=== PATIENT | male | born 1975 | race Two or more races ===

== ENCOUNTER 2018-08-19 18:41 | Emergency (ER) | payer MEDICAID ==
[~2018-08-19] VITALS: Ht 167.6 cm; Wt 86.2 kg
[2018-08-19] MEDS ORDERED: SODIUM CHLORIDE 0.9% 1,000 ML IV ONE ×2 (19:15→20:30)
[2018-08-19] MEDS ORDERED: ONDANSETRON HCL 4 MG/2 ML VIAL IV ONE (19:15)
[2018-08-19] MEDS ORDERED: MORPHINE SULFATE 4 MG/ML SYR/VIAL IV ONE (19:15)
[2018-08-19 19:40] LABS: Basophils # (auto) 0 uL; Eosinophils # (auto) 0 uL; Eosinophils % (auto) 0.2 % (0.0-7.0); Lymphocytes # (auto) 1.4 uL; Mean Corpuscular Hemoglobin 34.1 pg (28.0-32.0)
[2018-08-19 19:44] LABS: Basophils % (auto) 0.6 % (0.0-2.0); Hemoglobin 16.6 g/dL (13.5-17.5); Lymphocytes % (auto) 19.4 % (10.0-50.0); Mean Corpuscular Hgb Conc. 34.7 g/dL (32.0-36.0); Mean Corpuscular Volume 98.1 fL (80.0-100.0); Monocytes # (auto) 0.8 uL; Monocytes % (auto) 10.3 % (0.0-12.0); Neutrophils # (auto) 5.1 uL; Neutrophils % (auto) 69.5 % (37.0-80.0); Nucleated Red Blood Cells % 0.2 %; Platelet Count (auto) 202 10^3/uL (140-450); Red Blood Cells 4.89 10^6/uL (4.5-5.90); Red Cell Distribution Width 11.9 % (11.8-14.3); White Blood Cell 7.4 10^3/uL (4.4-10.8)
[2018-08-19 19:59] LABS: Albumin 4.2 g/dL (3.4-5.0); BUN/Creatinine Ratio 10.8; Calcium 9.1 mg/dL (8.5-10.1); Potassium 3.3 mmol/L (3.5-5.1)
[2018-08-19 20:02] LABS: Bilirubin, Total 1.6 mg/dL (0.2-1.0); Total Protein 8.6 g/dL (6.4-8.2)
[2018-08-19 21:26] VITALS: BP 151/99
== END 2018-08-19 21:57 | disposition home or self-care (01) ==
LOC: ER 18:41
DX: K52.9 Noninfective gastroenteritis and colitis, unspecified (principal); H10.9 Unspecified conjunctivitis; J32.9 Chronic sinusitis, unspecified; J45.909 Unspecified asthma, uncomplicated; I10 Essential (primary) hypertension; E03.9 Hypothyroidism, unspecified; F12.90 Cannabis use, unspecified, uncomplicated
CPT/HCPCS: 36415; 80053; 82150; 83690; 85025; 96361; 96374; 96375; 99283; J2270; J2405; J7030